=== PATIENT | female | born 1985 | race African-American/Black ===

== ENCOUNTER 2023-03-11 11:43 | Outpatient (REF) | payer OTHER, SELFPAY ==
--- NOTE | ~2023-03-11 | XR_ITS ---
EXAMINATION: XR AP STANDING VIEW BOTH KNEES. XR KNEE, BILATERAL. CLINICAL INFORMATION: Bilateral knee pain COMPARISON: Radiographs 05/09/2018 TECHNIQUE: AP standing view both knees. Lateral and sunrise views of each knee. FINDINGS: Evidence of medial patellofemoral ligament reconstruction surgery of the right knee. There is mild patellofemoral and medial compartment osteoarthritis of both knees with no joint effusion. No acute osseous abnormalities. XR/XR knee LT 2V IMPRESSION: Mild patellofemoral and medial compartment osteoarthritis of both knees, slightly progressed since 2018. No acute abnormality. No joint effusion.
--- NOTE | ~2023-03-11 | XR_ITS ---
EXAMINATION: XR AP STANDING VIEW BOTH KNEES. XR KNEE, BILATERAL. CLINICAL INFORMATION: Bilateral knee pain COMPARISON: Radiographs 05/09/2018 TECHNIQUE: AP standing view both knees. Lateral and sunrise views of each knee. FINDINGS: Evidence of medial patellofemoral ligament reconstruction surgery of the right knee. There is mild patellofemoral and medial compartment osteoarthritis of both knees with no joint effusion. No acute osseous abnormalities. XR/XR knee standing BI IMPRESSION: Mild patellofemoral and medial compartment osteoarthritis of both knees, slightly progressed since 2018. No acute abnormality. No joint effusion.
--- NOTE | ~2023-03-11 | XR_ITS ---
EXAMINATION: XR AP STANDING VIEW BOTH KNEES. XR KNEE, BILATERAL. CLINICAL INFORMATION: Bilateral knee pain COMPARISON: Radiographs 05/09/2018 TECHNIQUE: AP standing view both knees. Lateral and sunrise views of each knee. FINDINGS: Evidence of medial patellofemoral ligament reconstruction surgery of the right knee. There is mild patellofemoral and medial compartment osteoarthritis of both knees with no joint effusion. No acute osseous abnormalities. XR/XR knee RT 2V IMPRESSION: Mild patellofemoral and medial compartment osteoarthritis of both knees, slightly progressed since 2018. No acute abnormality. No joint effusion.
== END 2023-03-11 11:44 | disposition home or self-care (01) ==
LOC: HO.HOSX 11:43
PROVIDERS: Visit Provider Orthopaedic Surgery
DX: M25.361 Other instability, right knee (principal); M25.362 Other instability, left knee; M25.561 Pain in right knee; M25.562 Pain in left knee
CPT/HCPCS: 73560; 73565

== ENCOUNTER 2023-03-11 12:54 | Outpatient (AMB) | payer OTHER, SELFPAY ==
--- NOTE | 2023-03-11 12:56 | MHC.OFFVIS ---
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 Patient reports that she has had ongoing knee pain for quite some time now. Hx of right patella MPFL reconstruction follow up DOS: 02/21/14with NE. She is having increased knee pain and swelling on the anteriorlateral aspect of the knees. She is having pain in the knees every day some are worse than other on the worst days it is hard to get out of bed. The left knee is giving out on her which she explains feels like the right knee did prior to surgery. She is doing at home exercises that she was given and she does not feel that they have been helpful at all. 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 She has a hx of a right knee in the past. She complains of pain with daily activity, and says on some days she is unable to get out of bed due to her pain. She says her left knee gives way on her, and feels similar to her right knee did prior to surgery. She has been performing at-home exercises, which she says have not been helpful. 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 [facility] Social History (Updated 03/11/23 @ 13:11 by Lissy Mena CMA) Patient Tobacco Use Status: Never used Tobacco Current occupational status: unemployed Review of Systems Const All systems reviewed & are unremarkable except as noted in HPI and below Physical Exam Vital Signs: BMI result Body Mass Index 31.3 Const General: no acute distress, alert and awake Orientation/consciousness: patient oriented x3 HEENT Head: Yes normocephalic and Yes atraumatic Eyes EOM: EOMs intact bilaterally Resp Effort & Inspection: normal respiratory effort and able to speak in complete sentences Cardio Jugular venous distension: no JVD Skin General skin exam: turgor normal Rashes: no rashes Neuro General: patient oriented x3 Extrem Other: Bilateral Knees: Retropatellar TTP Bursal swellign bilaterally Full ROM ligamentously stable exam Psych Appearance: grossly normal Affect: normal affect Attitude: cooperative Results Reviewed Results Reviewed: I personally reviewed relevant radiographs. Assessment & Plan Assessment & Plan (1) Patellofemoral instability of both knees with pain: Code(s): M25.361 - Other instability, right knee; M25.362 - Other instability, left knee; M25.561 - Pain in right knee; M25.562 - Pain in left knee Plan: This is a 37 year old woman with bilateral knee PF pain syndrome. She underwent a lateral release on the right but her recovery was extensive.. She has pain with daily activity, feels limited in her ADLs, and that her QOL is diminished. On bad days she is unable to leave her bed without pain & difficulty. I discussed her diagnosis and treatment options. I recommend PT and nsaids. This is the same discussion I have had with her in the past and she understands. Orders: Orders XR knee LT 2V 03/11/23 M25.569 - Pain in unspecified knee PT Evaluation and Treatment Today M25.361 - Other instability, right knee, M25.362 - Other instability, left knee, M25.561 - Pain in right knee, M25.562 - Pain in left knee XR knee standing BI 03/11/23 M25.569 - Pain in unspecified knee XR knee RT 2V 03/11/23 M25.569 - Pain in unspecified knee Coding Level of Care Code New Pt Level 3 (16796) Diagnoses Patellofemoral instability of both knees with pain M25.361; M25.362; M25.561; M25.562
[2023-03-11 13:08] VITALS: BMI 31.3
== END 2023-03-11 13:50 | disposition home or self-care (01) ==
PROVIDERS: Visit Provider Orthopaedic Surgery
DX: M25.361 Other instability, right knee (principal); M25.362 Other instability, left knee; M25.561 Pain in right knee; M25.562 Pain in left knee
CPT/HCPCS: 99203